=== PATIENT | female | born 1930 | race Caucasian/White ===

== ENCOUNTER 2016-10-16 19:30 | Observation (INO) | payer MEDICARE ==
[~2016-10-16] VITALS: Ht 167.6 cm; Wt 81.6 kg
--- NOTE | ~2016-10-16 | HEMODYNAMI ---
PATIENT:SIMA PHILLIP MEDICAL RECORD: [id number] : 32 [id number] ADMISSION DATE: 10/17/16 Generatedon:10/17/201610:28 Patient name: SIMA PHILLIP Patient #: [id number] : 1930 Date of study: 10/17/2016 Page: Of Hemodynamic Procedure Report Patient Data Patient Demographics Procedure consent was obtained First Name: SIMA Gender: Female Last Name: MARJAN : 1930 Middle Initial: BLAS Age: 86 year(s) Patient #: [id number] Race: SSN: [id number] Additional ID: [id number] Contact details Address: [address] [place] [address] C/O [place]: [place] [facility] [place]: [address] Past Medical History Allergies: No known allergies Admission Admission Data Admission Date: 10/17/2016 Admission Time: 0:06 Room #: D.2116 Weight (lbs.): 180.78 Weight (kg.): 82 Lab Results Lab Result Date: 10/17/2016 Lab Result Time: 0:00 Biochemistry Name Units Result Min Max BUN mg/dl 21 --(----)-* 7 18 Creatinine mg/dl 0.9 --(-*--)-- 0.6 1.3 CBC Name Units Result Min Max Hemoglobin g/dl 13.4 -*(----)-- 13.5 17.5 Procedure Procedure Types Cath Procedure Diagnostic Procedure LHC LHC w/Coronaries PCI Procedure Coronary Stent Initial Miscellaneous Procedures Moderate Sedation up to 15 minutes Procedure Description Procedure Date Procedure Date: 10/17/2016 Procedure Start Time: 10:14 Procedure End Time: 10:25 Procedure Staff Name Function Esequiel Mon MD Performing Physician Ana María Bejarano RT Scrub Tanya Moise RN Nurse Benjamin Bonilla RT Twist Maker Tomy Meza RT Monitor Procedure Data Cath Procedure Fluoroscopy Diagnostic fluoroscopy Total fluoroscopy Time: 1.6 time: 1.6 min min Diagnostic fluoroscopy Total fluoroscopy dose: dose: 108.4 mGy 108.4 mGy Contrast Material Contrast Material Type Amount (ml) Isovue 300 77 Entry Location Entry Primary Successful Side Size Upsize Upsize Entry Closure Succes sful Closure Location (Fr) 1 (Fr) 2 (Fr) Remarks Device Remarks Femoral Right 5 Fr 6 Fr Vascade artery Short Closure System Diagnostic catheters Device Type Used For End Catheter Placement Cordis 5Fr Pigtail LV Angiography Catheter (MP) Cordis 5Fr JL 4.0 Left Coronary Catheter (MP) Angiography Cordis 5Fr 3DRC Catheter Right Coronary (MP) Angiography Procedure Complications No complications Procedure Medications Medication Administration Route Dosage Oxygen NC 2 l/min Heparin Flush Bag added to field 2 bags (1000units/500ml NS) Lidocaine 2% added to field 20 Versed I.V. 1 mg Fentanyl I.V. 50 mcg Versed I.V. 1 mg Fentanyl I.V. 50 mcg Heparin Bolus I.V. 4000 units Hemodynamics Rest HGB: 13.4 (g/dl) Heart Rate: 62 (bpm) Snapshots Pre Cath Intra NCS Post Cath Vital Signs Time Heart Resp SPO2 NIBP (mmHg) Rhythm Pain Sedation Rate (ipm) (%) Status Level (bpm) 9:52:14 63 14 98 147/75(125) NSR 0 (11) 10(A) , No pain 9:56:50 68 13 94 142/73(91) NSR 0 (11) 10(A) , No pain 10:01:19 66 16 95 142/68(117) NSR 0 (11) 10(A) , No pain 10:05:51 66 16 95 139/68(116) NSR 0 (11) 10(A) , No pain 10:10:24 70 18 95 139/61(116) NSR 0 (11) 10(A) , No pain 10:14:50 70 16 96 138/69(111) NSR 0 (11) 10(A) , No pain 10:19:22 69 16 100 140/64(117) NSR 0 (11) 9(A) , No pain 10:23:51 72 20 100 130/63(110) NSR 0 (11) 9(A) , No pain Medications Time Medication Route Dose Verified Delivered Reason Notes Effectiveness by by 9:53:04 Oxygen NC 2 Esequiel Farrellca Per physician l/min Elieser Moise RN 9:53:16 Heparin Flush added 2 Esequiel Iraheta used for Bag to bags Elieser Mon MD procedure (1000units/500ml field NS) 9:53:22 Lidocaine 2% added 20ml Esequiel Esequiel used for to vial Elieser Mon MD procedure field 10:12:42 Versed I.V. 1 mg Esequiel Tanya for sedation Elieser Moise RN 10:12:48 Fentanyl I.V. 50 Esequiel Tanya for sedation mcg Elieser Moise RN 10:15:49 Versed I.V. 1 mg Esequiel Tanya for sedation Elieser Moise RN 10:15:53 Fentanyl I.V. 50 Esequiel Tanya for sedation mcg Elieser Moise RN 10:20:00 Heparin Bolus I.V. 4000 Esequiel Velardeecca for dose units Elieser Moise RN anticoagulation verified with dr mon Procedure Log Time Note 9:42:52 Diagnostic Cath status Elective 9:43:28 Benjamin Bonilla RT(R) sent for patient. Start room use. 9:43:29 Time tracking: Regular hours 9:43:39 Plan of Care:Hemodynamics will remain stable., Cardiac rhythm will remain stable., Comfort level will be maintained., Respiratory function will remain adequate., Patient/ family verbilizes understanding of procedure., Procedure tolerated without complication., Recovers from procedure without complications.. 9:43:46 Patient received from Med II to CCL 2 Alert and oriented. Tansferred to table in Supine position. 9:43:48 Warm blankets applied, and librado hugger turned on for patient comfort. 9:43:50 Correct patient and procedure confirmed by team. 9:43:53 Signed procedure consent form obtained from patient. 9:50:38 Vital chart was started 9:53:04 Oxygen 2 l/min NC was given by Tanya Moise RN; Per physician; 9:53:16 Heparin Flush Bag (1000units/500ml NS) 2 bags added to field was given by Esequiel Mon MD; used for procedure; 9:53:22 Lidocaine 2% 20ml vial added to field was given by Esequiel Mon MD; used for procedure; 9:55:46 ECG and BP/O2 sat monitors applied to patient. 9:55:47 Baseline sample Acquired. 9:55:49 Rhythm: sinus rhythm 9:55:50 Full Disclosure recording started 9:56:11 H&P Date Dictated: 10/17/2016 Within 30 days and on chart.. 9:56:13 Pre-procedure instructions explained to patient. 9:56:13 Pre-op teaching completed and patient verbalized understanding. 9:56:17 Family in patients room. 9:56:19 Patient NPO since Midnight. 9:56:30 Patient allergic to No known allergies 9:56:33 Is the patient allergic to Iodine/contrast media? No. 9:56:38 Was the patient premedicated? No 9:56:40 Is patient on blood thinner?Yes 9:56:43 ACC The patient was administered the following blood thiners within the last 24 hours: ACCPlavix 9:56:46 Patient diabetic? No. 9:56:48 ----Pre-sedation anethsthesia assessment.---- 9:56:50 Previous problem with sedation/anesthesia? No ? 9:56:53 Snore? Yes 9:56:54 Sleep apnea? No 9:56:56 Deviated septum? No 9:56:58 Opens mouth fully? Yes 9:57:00 Sticks out tongue? No 9:57:02 Airway obstruction? No ? 9:57:04 Dentures? No ? 9:57:06 Pre procedure: right dorsailis pedis pulse 1+ Palpable, but thready & weak; easily obliterated 9:57:09 Patient pain scale 0/10 ?. 9:57:17 IV patent on arrival in right antecubital with 0.9% NaCl at 10ml/hr. 9:57:53 Lab Result : BUN 21 mg/dl 9:57:53 Lab Result : Creatinine 0.9 mg/dl 9:57:53 Lab Result : Hemoglobin 13.4 g/dl 9:57:56 Lab results completed and on chart. 9:57:59 Right groin area was prepped with chlora-prep and draped in sterile fashion 9:58:01 Alarms reviewed by R. N. 9:58:01 Sharps counted by scrub and verified by R.N. 10:01:49 Physician paged 10:01:56 Patient Weight : 82 lbs 10:03:54 Zero performed for pressure channel P1 10:12:16 --------ALL STOP TIME OUT------ 10:12:16 Final Timeout: patient, procedure, and site verified with staff and physician. All members of the team are in agreement. 10:12:19 Right groin site verified by team. 10:12:23 Physical assessment completed. ASA score P 2 - A patient with mild systemic disease as per Esequiel Mon MD. 10:12:28 Sedation plan: IV Moderate Sedation Versed, Fentanyl 10:12:42 Versed 1 mg I.V. was given by Tanya Moise RN; for sedation; 10:12:47 Use device set Femoral Dx 10:12:48 Fentanyl 50 mcg I.V. was given by Tanya Moise RN; for sedation; 10:12:48 Acist Syringe opened to sterile field. 10:12:48 Bag Decanter opened to sterile field. 10:12:49 Cardinal Cath Pack opened to sterile field. 10:12:49 Terumo 5Fr [place] Sheath opened to sterile field. 10:12:50 St Mushtaq 260cm J .035 wire opened to sterile field. 10:12:51 Acist Hand Control opened to sterile field. 10:12:52 Acist Manifold opened to sterile field. 10:12:52 Cordis Infinity 5Fr Multipack catheter opened to sterile field. 10:12:53 Tegaderm 4 x 4 opened to sterile field. 10:13:59 Procedure started. 10:14:08 Local anesthetic to right femoral artery with Lidocaine 2% by Esequiel Mon MD.INITIAL ACCESS ONLY 10:14:15 A 5 Fr sheath was inserted into the Right Femoral artery 10:15:09 A Cordis 5Fr Pigtail Catheter (MP) was advanced over the wire and used for LV Angiography. 10:15:12 LV angiography performed. 10:15:15 LV gram done using SOLIMAN 10:15:20 Injector settings: Ml/sec: 5, Volume: 15, 10:15:49 Versed 1 mg I.V. was given by Tanya Moise RN; for sedation; 10:15:53 Fentanyl 50 mcg I.V. was given by Tanya [place] RN; for sedation; 10:16:21 EF : 60 % 10:16:22 Catheter removed. 10:16:27 A Cordis 5Fr JL 4.0 Catheter (MP) was advanced over the wire and used for Left Coronary Angiography. 10:17:09 LCA angiography performed. 10:17:39 Catheter removed. 10:17:56 Terumo 6Fr [place] Sheath opened to sterile field. 10:17:57 Paulson Whisper J 300cm 0.014 guide wire opened to sterile field. 10:17:57 Flixlab BasixCompak Inflation Kit opened to sterile field. 10:18:11 A Cordis 5Fr 3DRC Catheter (MP) was advanced over the wire and used for Right Coronary Angiography. 10:18:14 RCA angiography performed. 10:18:42 Catheter removed. 10:18:55 Cordis 6FR XBLAD 3.5 guide catheter opened to sterile field. 10:19:47 Sheath upsized to a 6 Fr Short. 10:19:52 ACC PCI Site: mLAD has 75% stenosis. 10:19:55 ACC Pre-intervention TERESA Flow is 2. 10:20:00 Heparin Bolus 4000 units I.V. was given by Tanya Moise RN; for anticoagulation; dose verified with dr mon 10:20:02 6 Fr XBLAD 3.5 guide catheter was inserted over the wire 10:20:06 Zenovia Digital ExchangeISPER wire advanced. 10:21:38 Inflation Number: 1 A Medtronic Resolute 3.0 X 9 stent was prepped and advanced across the Mid LAD. The stent was deployed at 19 CARIE for 0:10 (min:sec). 10:22:04 ACC Post-intervention TERESA Flow is 3. 10:22:05 Stent catheter was removed intact over wire. 10:22:06 Wire removed. 10:22:06 Guide catheter removed. 10:22:17 Sheath removed intact; hemostasis achieved with Vascade Closure System to the Right Femoral artery. 10:22:24 Vascade 6/7 Fr Closure Device opened to sterile field. 10:22:29 Procedure ended.(Physican Out) 10:23:13 Fluoroscopy time 01.60 minutes. 10:23:23 Fluoroscopy dose: 108.4 mGy 10:23:23 Flurop Dose total: 108.4 10:23:45 Contrast amount:Isovue 300 77ml. 10:23:46 Sharps counted by scrub and verified by R.N. 10:23:47 Insertion/operative site no bleeding no hematoma. 10:23:49 Post-op/insertion site Right Femoral artery dressed using a 4 x 4 and Tegaderm. 10:23:52 Post right femoral artery:stable 10:23:54 Post Procedure Pulses reassessed and unchanged 10:23:57 Post procedure rhythm: sinus rhythm 10:23:58 Post procedure instruction explained to patient.Patient verbalizes understanding. 10:24:15 Procedure type changed to Cath procedure, Diagnostic procedure, LHC, LHC w/Coronaries, PCI procedure, Coronary Stent Initial, Miscellaneous Procedures, Moderate Sedation up to 15 minutes 10:24:38 Procedure and supply charges have been captured, reviewed, submitted and are correct. 10:25:00 Procedure Complication : No complications 10:25:02 Vital chart was stopped 10:25:03 See physician's report for complete and final results. 10:25:04 Report given to PCU. 10:25:08 Patient transfered to PCU with Bed. 10:25:10 Procedure ended. 10:25:10 Full Disclosure recording stopped 10:25:14 End room use (Document Last) Intervention Summary Intervention Notes Time ActionType Lesion and Equipment Action# Pressure Duration Attributes Used 10:21:38 Place stent Mid LAD Medtronic 1 19 00:10 Resolute 3.0 X 9 stent Device Usage Item Name Manufacture Quantity Catalog Hospital Part Current Minima l Lot# / Number Charge Number Stock Stock Serial# Code Acist Acist 1 51395 139164 923373 856252 20 Syringe Medical Systems Inc Bag Microtek 1 2002S 553445 71483 691043 5 Decanter Medical Inc. Cardinal Cardinal 1 [id number] 818518 71841 825523 5 Cath Pack Geolab-IT Terumo 5Fr Terumo 1 [id number] 627187 568871 [address] Mushtaq 1 979277 320625 515402 139386 30 260cm J .035 wire Acist Hand Acist 1 63356 297184 531094 556245 5 Control Medical Systems Inc Acist Acist 1 91529 742920 883752 236835 5 Manifold Medical Systems Inc Cordis Cardinal 1 [id number] 280001 88244 163394 30 Infinity Health 5Fr Multipack catheter Tegaderm 4 3M 1 1626W 915737 003824 477876 5 x 4 Cordis 5Fr Cardinal 1 662696 5 Pigtail Health Catheter (MP) Cordis 5Fr Cardinal 1 361014 5 JL 4.0 Health Catheter (MP) Terumo 6Fr Terumo 1 [id number] 077648 525063 232206 40 Mar[place]opa Sheath Paulson Paulson 1 [id number] 447396 232076 435228 5 Whisper J Vascular 300cm 0.014 guide wire Merit Merit 1 GG7865 428362 641514 939957 15 FP Complete Medical Inflation Kit Cordis 5Fr Cardinal 1 853735 5 3DRC Health Catheter (MP) Cordis 6FR Cardinal 1 [id number] 067609 651979 861638 10 XBLAD 3.5 Health guide catheter Medtronic Medtronic 1 [id number] 795500 272410 0 [id number] Resolute 3.0 X 9 stent Vascade 02/13 Cardiva 1 [id number] 479821 171678 788786 5 Fr Closure Medical, Device Inc. Signature Audit Westley Stage Time Signature Unsigned Intra-Procedure 10/17/2016 Tomy Meza 10:28:26 AM RT(R) Signatures Monitor : Tomy Meza RT Signature : Date : Time : [id number] [place] [address]
[2016-10-16 20:35] LABS: BASOPHILS 0.2 % (0.0-2.0); EOSINOPHILS 0.8 % (0-7); HEMATOCRIT 42.7 % (36.0-48.0); IMMATURE GRANULOCYTES 0.2 % (0-5); LYMPHOCYTES 24.3 % (15-50); MCH 30.3 pg (26.0-34.0); MCHC 32.8 g/dL (31.0-37.0); MCV 92.4 fL (80.0-100.0); MEAN PLATELET VOLUME 10.6 fL (7.4-10.4); MONOCYTES 10.2 % (2-11); NEUTROPHILS 64.3 % (40-80); PLATELET COUNT 176 10x3/uL (130-400); RBC 4.62 10x6/uL (4.00-5.40); RDW 14.2 % (11.5-14.5); WBC 9.6 10x3/uL (4.8-10.8)
[2016-10-16 20:55] LABS: ALBUMIN 3.4 g/dL (3.4-5.0); ALKALINE PHOSPHATASE 127 U/L (46-116); ALT (SGPT) 23 U/L (10-68); BILIRUBIN - TOTAL 0.32 mg/dL (0.2-1.3); CALC OSMOLALITY 289 mosm/kg (275-300); CALCIUM 8.9 mg/dL (8.5-10.1); CARBON DIOXIDE 30.4 mmol/L (21.0-32.0); CHLORIDE - SERUM 105 mmol/L (98-107); GLUCOSE 100 mg/dL (74-106); POTASSIUM - SERUM 3.9 mmol/L (3.5-5.1); PROTEIN - SERUM 6.7 g/dL (6.4-8.2); SODIUM 144 mmol/L (136-145); UREA NITROGEN 20 mg/dL (7-18); eGFR NON AFRICAN AMERICAN 56 mL/min (90-120)
[2016-10-16 21:06] LABS: CHOL - HDL RATIO 4.3 ratio (2.3-4.1); CHOLESTEROL, TOTAL 201 mg/dL (0-200); CKMB 0.6 U/L (0.0-3.6); CREATINE KINASE 47 UL (21-215); HDL CHOLESTEROL 47 mg/dL (32-96); LDL CHOLESTEROL 114 mg/dL (0-100); LDL-HDL RATIO 2.4 ratio (1.5-3.5); PRO BNP 348 pg/mL (0-450); TRIGLYCERIDE 203 mg/dL (30-200)
[2016-10-16 21:10] LABS: TROPONIN-I < 0.017 ng/mL (0.000-0.060)
[2016-10-17] MEDS ORDERED: FUROSEMIDE20 MG PO (01:17)
[2016-10-17] MEDS ORDERED: POTASSIUM CL ER 10 M PO (01:18)
[2016-10-17] MEDS ORDERED: LIPITOR10 MG PO (01:19)
[2016-10-17] MEDS ORDERED: PLAVIX75 MG PO (01:20)
[2016-10-17] MEDS ORDERED: TOPROL XL50 MG PO (01:21)
[2016-10-17] MEDS ORDERED: BAYER CHEWABLE81 MG PO (01:22)
[2016-10-17] MEDS ORDERED: CO Q-10200 MG PO (01:22)
[2016-10-17] MEDS ORDERED: NITROSTAT0.4 MG SL (01:22)
[2016-10-17] MEDS ORDERED: VITAMIN D31000 UNIT PO (01:23)
[2016-10-17 01:33] VITALS: BP 152/65; BMI 29.1
[2016-10-17 04:00] VITALS: BP 145/70
--- NOTE | 2016-10-17 05:38 | NUR ---
PT ARRIVED VIA WHEELCHAIR @ 01:04 THIS AM, AWAKE, ALERT, ORIENTED, DENIES ACTIVE CHEST PAIN. PT STATED SHE USES [facility], AND HAS RECENTLY MOVED FROM [place] TO HERE AND HER MEDS WERE SENT TO THE [place] ADDRESS, THEREFORE SHE HAS BEEN OUT OF HER DAILY MEDICATIONS. PT DENIES CHEST PAIN WITH EXERTION, HOWEVER SHE DOES DESCRIBE PAIN WITH INSPIRATION. DENIES ANY NEEDS. CONTINUE TO MONITOR CLOSELY.
[2016-10-17 07:50] VITALS: BP 159/68
[2016-10-17 08:42] LABS: BASOPHILS 0.3 % (0.0-2.0); EOSINOPHILS 1.1 % (0-7); HEMATOCRIT 41.3 % (36.0-48.0); HEMOGLOBIN 13.4 g/dL (12-16); IMMATURE GRANULOCYTES 0.1 % (0-5); LYMPHOCYTES 35.6 % (15-50); MCHC 32.4 g/dL (31.0-37.0); MCV 92.4 fL (80.0-100.0); MEAN PLATELET VOLUME 11.6 fL (7.4-10.4); MONOCYTES 10.6 % (2-11); NEUTROPHILS 52.3 % (40-80); PLATELET COUNT 180 10x3/uL (130-400); RBC 4.47 10x6/uL (4.00-5.40); RDW 14.3 % (11.5-14.5); WBC 7.9 10x3/uL (4.8-10.8)
[2016-10-17 08:47] LABS: ANION GAP 10.4 mmol/L (8-16); CALCIUM 8.8 mg/dL (8.5-10.1); CARBON DIOXIDE 28.5 mmol/L (21.0-32.0); CREATININE - SERUM 0.9 mg/dL (0.6-1.3); POTASSIUM - SERUM 3.9 mmol/L (3.5-5.1)
--- NOTE | 2016-10-17 09:27 | NUR ---
TELEMETRY SR. CONSENTS FOR C SIGNED. PRE-OPS GIVEN. WILL CONT. PLAN OF CARE.
--- NOTE | 2016-10-17 09:33 | NUR ---
LEAVING FOR LAT[employer] STUDIES DIRECTOR BY BED.
[2016-10-17 10:39] VITALS: Ht 167.6 cm; Wt 81.6 kg
--- NOTE | 2016-10-17 10:48 | NUR ---
BACK FROM ALUM MIXER. VS WNL/ RIGHT GROIN STABLE WITHOUT BLEEDING OR HEMATOMA NOTED. WILL MONITOR.
[2016-10-17 11:59] VITALS: BP 131/61
--- NOTE | 2016-10-17 14:30 | NUR ---
BED REST UP. GROIN STABLE.
--- NOTE | 2016-10-17 14:52 | NUR ---
IV AND TELEMETRY DCD. DC PLANS GIVEN. UNDERSTANDING VOICED. ESCORTED TO CAR BY W/C.
--- NOTE | 2016-10-18 13:59 | OP ---
PATIENT NAME: SIMA PHILLIP MEDICAL RECORD: [id number] :32 LOCATION:D.M2 D.2116 ADMISSION DATE:10/17/16 SURGEON: JIGAR PRIETO MD DATE OF OPERATION: 10/17/2016 PROCEDURES: 1. PTCA stent LAD. 2. Left heart catheterization. 3. Selective coronary angiography. 4. Left ventriculogram. INDICATION: Angina and coronary artery disease. PROCEDURE IN DETAIL: After informed consent was obtained and after detailed explanation of risks, benefits as well as alternative therapies, the patient elected to proceed with angiogram and angioplasty. The right femoral area was prepped and draped in normal sterile fashion. The right femoral artery was cannulated via modified Seldinger technique with placement of 6-Maltese sheath. All catheters exchanged through this sheath. FINDINGS: Left ventriculogram was performed in standard 30-degree SOLIMAN view, reveals good cardiac wall motion throughout all segments. Overall ejection fraction is 60%. SELECTIVE CORONARY ANGIOGRAPHY: 1. Left main showed no significant angiographic disease. 2. Left anterior descending has previously placed stents that are 75% in-stent restenosis in the midvessel, otherwise only mild irregularities. 3. Left circumflex has mild irregularities, no flow-limiting stenosis. 4. Right coronary has mild irregularities, but no flow-limiting stenosis. Previously placed stents here are with no significant restenosis. PTCA STENT OF THE LAD: The stent used was 3.0 x 8 mm Resolute taken to 19 atmospheres. Result was 0% residual stenosis. OVERALL IMPRESSION: Successful percutaneous transluminal coronary angioplasty stent of the left anterior descending going from 75% in-stent restenosis to 0% residual. TRANSINT:[id number] Voice Confirmation ID: [id number] DOCUMENT ID: [id number] JIGAR PRIETO MD at 1359 CC: [id number] DICTATION DATE: 10/17/16 1028 DETONATOR ASSEMBLER: 10/17/16 1108 DIS IN 10/17/16 [place] [id number]
--- NOTE | 2016-10-18 13:59 | DS ---
PATIENT:SIMA RAY :[birth year] MEDICAL RECORD: [id number] DISCHARGE SUMMARY ADMISSION DATE: 10/17/16 DISCHARGE DATE: 10/17/16 DISCHARGE DIAGNOSES: 1. Unstable angina. 2. Percutaneous transluminal coronary angioplasty stent of the left anterior descending this admission. 3. Hypertension. 4. Hyperlipidemia. HISTORY: Mrs. Ray presents with unstable anginal symptomatology, found to have restenosis in the mid LAD, underwent successful PTCA stent of this vessel, had an uneventful postop course. She was discharged home with no change in her medications as she is already on aspirin and Plavix. Follow up with [facility] in 1 month. TRANSINT:[id number] Voice Confirmation ID: [id number] DOCUMENT ID: [id number] JIGAR PRIETO MD at 1359 CC: [id number] DICTATION DATE: 10/17/16 1027 MOLDED FRAMES ASSEMBLER: 10/17/16 1244 DIS IN 10/17/[address] [address]
--- NOTE | 2016-10-18 13:59 | HP ---
PATIENT: SIMA RAY MEDICAL RECORD: [id number] ACCOUNT: [id number] LOCATION:[address] : [birth year] ADMISSION DATE: 10/17/16 HISTORY AND PHYSICAL EXAMINATION ADMITTING DIAGNOSES: 1. Unstable angina. 2. Coronary artery disease. 3. Previous percutaneous transluminal coronary angioplasty stent. 4. Abnormal ECG. 5. Hypertension. 6. Hyperlipidemia. HISTORY OF PRESENT ILLNESS: Mrs. Ray has previous cardiac stents, 4 in 2010, one in December of last year. These were all done near [place], [place]. She is relocated to the [facility]. She has had 2 days of chest pain. She has T-wave inversions anteriorly. She has a normal troponin. She has continued to have chest pain. PHYSICAL EXAMINATION: GENERAL APPEARANCE: Well-nourished, well-developed, appears stated age. Level of distress, comfortable. PSYCHIATRIC: Mental status, alert, normal affect. Orientation, oriented to time, place and person. EYES: Lids and conjunctiva, noninjected. No discharge, no pallor. ENT: Lips, teeth, gums, normal dentition. Oropharynx, no cyanosis, no pallor. NECK: Carotid arteries, bilateral normal upstroke, no bruits, no thrills. JUGULAR VEINS: No jugular venous pressure or distention. CERVICAL LYMPH NODES: Nontender, nonenlarged. THYROID: Not enlarged. Nontender. No nodules. LUNGS: Respiratory effort, unlabored. CHEST: Normal curvature. No thoracic deformity. No chest wall tenderness. Percussion, resonant. Auscultation, clear. No wheezes, no rales, no rhonchi. CARDIOVASCULAR: Precordial exam, nondisplaced. No heaves or pericardial thrills. Rate and rhythm, regular. Heart sounds, normal S1, normal S2. No S3, no gallop, no rub. Systolic murmur, not heard. Diastolic murmur, not heard. EXTREMITIES: No cyanosis, no edema. Peripheral pulses, full and equal in all extremities, except as noted. No bruits appreciated. ABDOMEN: Soft, nondistended. Normal aorta. No bruit. Nontender. No masses. Liver, nontender, no hepatomegaly. Spleen, nontender, no splenomegaly. MUSCULOSKELETAL: No joint tenderness. No joint swelling. No erythema. NEUROLOGICAL: Normal gait, normal strength, normal tone. SKIN: Warm and dry. REVIEW OF SYSTEMS: The patient reports easy bruising but reports no swollen glands. The patient reports no fever, no night sweats, no significant weight gain, no significant weight loss. No significant exercise tolerance. The patient reports no dry eyes, no irritation, no vision change. Patient reports no difficulty hearing and no ear pain. Patient reports no frequent nose bleeds or nose and sinus problems. Patient reports on arm pain on exertion. No shortness of breath while lying down. No history of heart murmur. Patient reports no cough, no wheezing or coughing up blood. Patient reports no abdominal pain, no vomiting. Normal appetite. No diarrhea and not vomiting blood. No nausea and no constipation. Patient reports no incontinence. No difficulty urinating. No hematuria. No increased frequency. Patient reports HISTORY AND PHYSICAL [id number] RAY,SIMA BLAS no muscle aches. No weakness, no arthralgias, no back pain. No swelling of the extremities. Patient reports no abnormal mole, no jaundice, no rashes. Reports no loss of consciousness. No weakness and no numbness. No seizures, dizziness, or headaches. The patient reports no depression, no sleep disturbance, feeling safe in a relationship and no alcohol abuse. Patient reports on fatigue. Reports no runny nose or sinus pressure. No itching, no hives, and no frequent sneezing. OVERALL IMPRESSION: Unstable angina in a patient with a past history of coronary stenting, most likely she has hemodynamically significant coronary artery disease. We will proceed with coronary angiography. Further care depends upon findings of the angiography. TRANSINT:[id number] Voice Confirmation ID: [id number] DOCUMENT ID: [id number] JIGAR PRIETO MD at 1359 CC: [id number] DICTATION DATE: 10/17/16832 DIRECTOR CUSTOMER: 10/17/16 1010 DIS IN 10/17/16 [place] [address]
== END 2016-10-17 14:53 | disposition home or self-care (01) ==
LOC: D.ER 19:30 → OBSVTIME 10-17 00:06 → D.M2 10-17 00:06
PROVIDERS: Emergency Medicine; ADMIT Internal Medicine Interventional Cardiology
DX: I25.110 Atherosclerotic heart disease of native coronary artery with unstable angina pectoris (principal); Z95.5 Presence of coronary angioplasty implant and graft; R94.31 Abnormal electrocardiogram [ECG] [EKG]; I10 Essential (primary) hypertension; E78.5 Hyperlipidemia, unspecified

== ENCOUNTER 2019-04-12 11:18 | Outpatient (CLI) | payer MEDICARE ==
[~2019-04-12] VITALS: Ht 167.6 cm; Wt 87.5 kg
--- NOTE | ~2019-04-12 | HEMODYNAMI ---
PATIENT:SIMA PHILLIP MEDICAL RECORD: [id number] : 32 [facility] ADMISSION DATE: 04/12/19 Generatedon:04/13/201916:34 Patient name: SIMA PHILLIP Patient #: [id number] : 1930 Date of study: 04/13/2019 Page: Of Hemodynamic Procedure Report Patient Data Patient Demographics Procedure consent was obtained First Name: SIMA Gender: Female Last Name: MARJAN : 1930 Middle Initial: BLAS Age: 88 year(s) Patient #: [id number] Race: SSN: [id number] Additional ID: [id number] Contact details Address: [address] [place] [address] C/O State: [place] City: [facility] Zip code: [address] Past Medical History Allergies: No known allergies Admission Admission Data Admission Date: 04/12/2019 Admission Time: 11:18 Admit Source: Emergency Insurance Payor: Private department health insurance Room #: D.2117 Height (in.): 66 BSA: 1.97 (m2) Height (cm.): 167.64 BMI: 31.31 (kg/m2) Weight (lbs.): 194.01 Weight (kg.): 88 Lab Results Lab Result Date: 04/13/2019 Lab Result Time: 0:00 Biochemistry Name Units Result Min Max BUN mg/dl 22 --(----)-* 7 18 Creatinine mg/dl 0.9 --(-*--)-- 0.6 1.3 eGFR ml/min 63 *-(----)-- 90 120 NONAFRICAN CBC Name Units Result Min Max Hemoglobin g/dl 14.5 --(*---)-- 13.5 17.5 Platelets 10^3/l 176 --(*---)-- 130 400 Procedure Procedure Types Cath Procedure Diagnostic Procedure [facility] w/Coronaries Procedure Description Procedure Date Procedure Date: 04/13/2019 Procedure Start Time: 16:21 Procedure End Time: 16:30 Procedure Staff Name Function Esequiel Mon MD Performing Physician Chrissy Abreu RT Monitor Tameka Waddell RN Nurse Benjamin Bonilla RT Scrub Delmis Little RT Scrub Procedure Data Cath Procedure Fluoroscopy Diagnostic fluoroscopy Total fluoroscopy Time: 0.8 time: 0.8 min min Diagnostic fluoroscopy Total fluoroscopy dose: 265 dose: 265 mGy mGy Contrast Material Contrast Material Type Amount (ml) Isovue 300 54 Entry Location Entry Primary Successful Side Size Upsize Upsize Entry Closure Succes sful Closure Location (Fr) 1 (Fr) 2 (Fr) Remarks Device Remarks Femoral Right 5 Fr Exoseal artery Estimated blood loss: 5 ml Diagnostic catheters Device Type Used For End Catheter Placement MULTIPACK Pigtail 5 Fr LV Angiography catheter MULTIPACK JL 4.0 5Fr Left Coronary catheter Angiography MULTIPACK 3DRC 5Fr Right Coronary catheter Angiography Procedure Complications No complications Procedure Medications Medication Administration Route Dosage Oxygen etCO2 Nasal cannula 2 l/min Lidocaine 2% added to field 20 Heparin Flush Bag added to field 2 bags (1000units/500ml NS) 0.9% NaCl I.V. 100 ml/hr Versed I.V. 1 mg Fentanyl I.V. 50 mcg Hemodynamics Rest BSA: 1.97 (m2) HGB: 14.5 (g/dl) O2 Consumption: Estimated: 168.43 (ml/min) O2 Co nsumption indexed: Estimated:85.5 (ml/min/m) Heart Rate: 62 (bpm) Snapshots Pre Cath Intra NCS Post Cath Vital Signs Time Heart Resp SPO2 etCO2 NIBP (mmHg) Rhythm Pain Sedation Rate (ipm) (%) (mmHg) Status Level (bpm) 16:09:46 66 20 96 0 No Cuff NSR 0 (11) 10(A) , No pain 16:17:02 68 19 94 22.4 136/65(106) NSR 0 (11) 10(A) , No pain Medications Time Medication Route Dose Verified Delivered Reason Notes Eff ectiveness by by 16:15:24 Oxygen etCO2 2 Esequiel English used for Nasal l/min Elieser Waddell RN procedure cannula 16:15:31 Lidocaine 2% added 20ml Esequiel Iraheta for local to vial Elieser Mno MD anesthetic field 16:15:58 Heparin Flush added 2 Esequiel Iraheta used for Bag to bags Elieser Mon MD procedure (1000units/500ml field NS) 16:16:06 0.9% NaCl I.V. 100 Esequiel English Per ml/hr Elieser Waddell RN physician 16:16:17 Versed I.V. 1 mg Esequiel Desiryoshi for Elieser Waddell RN sedation 16:16:23 Fentanyl I.V. 50 Esequiel English for mcg Elieser Waddell RN sedation Procedure Log Time Note 15:45:58 Admit Source: Emergency department 15:46:23 ACC Patient presents with Unstable Angina CCS Anginal Class 4--Inability to carry out any physical activity w/o angina. Angina may occur at rest. 15:47:17 ACCPatient has been prescribed/administered the following anti-anginal medication within the last 2 weeks: Beta Aliya, Long-Acting Nitrates 15:47:52 Procedure Status Urgent Heart Cath (IP). 15:47:55 Chrissy Abreu RT(R) sent for patient. Start room use. 15:47:56 Time tracking: Regular hours (M-F 7:00 - 5:00) 15:48:00 Plan of Care:Hemodynamics will remain stable., Cardiac rhythm will remain stable., Comfort level will be maintained., Respiratory function will remain adequate., Patient/ family verbilizes understanding of procedure., Procedure tolerated without complication., Recovers from procedure without complications.. 15:49:49 Patient Height : 66 inches 15:49:54 Patient Weight : 194.01 lbs 15:50:21 Insurance Payor : Private health insurance 15:54:47 Lab Result : eGFR NONAFRICAN 63 ml/min 15:54:47 Lab Result : Hemoglobin 14.5 g/dl 15:54:47 Lab Result : BUN 22 mg/dl 15:54:47 Lab Result : Creatinine 0.9 mg/dl 15:54:47 Lab Result : Platelets 176 10^3/l 15:54:55 2) 60-89 Mildly reduced kidney function, and other findings (as for stage 1) point to kidney disease. 15:55:00 Maximum allowable contrast dose (3.7 X eGFR X 0.75)175 ml. 16:03:35 Patient received from PCU to CCL 2 Alert and oriented. Tansferred to table in Supine position. 16:03:36 Warm blankets applied, and librado hugger turned on for patient comfort. 16:03:38 Signed procedure consent form obtained from patient. 16:03:39 Correct patient and procedure confirmed by team. 16:03:39 ECG and BP/O2 sat monitors applied to patient. 16:06:26 H&P Date Dictated: 04/12/2019 Within 30 days and on chart.. 16:06:28 Pre-procedure instructions explained to patient. 16:06:28 Pre-op teaching completed and patient verbalized understanding. 16:06:31 Family in patients room. 16:07:04 Patient NPO since Midnight. 16:07:12 Is the patient allergic to Iodine/contrast media? No. 16:07:36 Is patient on blood thinner?Yes 16:07:41 ACC The patient was administered the following blood thiners within the last 24 hours: ACCAspirin, ACCPlavix 16:07:46 Patient diabetic? No. 16:07:48 Previous problem with sedation/anesthesia? No ? 16:07:50 Snore? Yes 16:07:51 Sleep apnea? No 16:07:52 Deviated septum? No 16:07:53 Opens mouth fully? Yes 16:07:54 Sticks out tongue? Yes 16:07:56 Airway obstruction? No ? 16:07:57 Dentures? No ? 16:08:00 Pre procedure: right dorsailis pedis pulse 1+ Palpable, but thready & weak; easily obliterated 16:08:06 Patient pain scale 0/10 ?. 16:08:14 IV patent on arrival in left antecubital with 0.9% NaCl at KVO. 16:08:15 Lab results completed and on chart. 16:08:19 Right groin area was prepped with chlora-prep and draped in sterile fashion 16:08:20 Alarms reviewed by R. N. 16:08:20 Sharps counted by scrub and verified by R.N. 16:08:38 Use device set Femoral Dx 16:08:40 Tegaderm 4 x 4 (1626W) opened to sterile field. 16:08:42 ACIST Syringe (14100) opened to sterile field. 16:08:42 Bag Decanter (2002S) opened to sterile field. 16:08:43 Medline Cath Pack ([id number]) opened to sterile field. 16:08:44 ACIST Hand Control (57618) opened to sterile field. 16:08:45 ACIST Manifold (68098) opened to sterile field. 16:08:47 DIAGNOSTIC Multipack 5Fr catheter set (IM9752) opened to sterile field. 16:08:48 SHEATH 5FR [place] (PMC317) opened to sterile field. 16:08:48 EMERALD Guide Wire (502-937) opened to sterile field. 16:08:58 Baseline sample Acquired. 16:09:00 Rhythm: sinus rhythm 16:09:01 Full Disclosure recording started 16:12:43 Physician arrived 16:12:44 --------ALL STOP TIME OUT------ 16:12:45 Final Timeout: patient, procedure, and site verified with staff and physician. All members of the team are in agreement. 16:12:50 Right groin site verified by team. 16:12:55 Fire Safety Assessment: A--An alcohol-based skin anteseptic being used preoperatively., C--Open oxygen or nitrous oxide is being used., D--An ESU, laser, or fiber-optic light is being used. 16:12:59 Physical assessment completed. ASA score P 2 - A patient with mild systemic disease as per Esequiel Mon MD. 16:15:24 Oxygen 2 l/min etCO2 Nasal cannula was administered by Tameka Waddell RN; used for procedure; 16:15:31 Lidocaine 2% 20ml vial added to field was administered by Esequiel Mon MD; for local anesthetic; 16:15:58 Heparin Flush Bag (1000units/500ml NS) 2 bags added to field was administered by Esequiel Mon MD; used for procedure; 16:16:06 0.9% NaCl 100 ml/hr I.V. was administered by Tameka Waddell RN; Per physician; 16:16:17 Versed 1 mg I.V. was administered by Tameka Waddell RN; for sedation; 16:16:23 Fentanyl 50 mcg I.V. was administered by Tameka Waddell RN; for sedation; 16:20:51 Procedure started. 16:21:06 Local anesthetic to right femoral artery with Lidocaine 2% by Esequiel Mon MD.INITIAL ACCESS ONLY 16:21:13 A 5 Fr sheath was inserted into the Right Femoral artery 16:22:32 A MULTIPACK Pigtail 5 Fr catheter was advanced over the wire and used for LV Angiography. 16:22:38 LV hemodynamics recorded. 16:22:39 LV gram done using SOLIMAN 16:22:41 Injector settings: Ml/sec: 5, Volume: 15, 16:22:52 EF : 50 % 16:22:56 Catheter removed. 16:23:00 A MULTIPACK JL 4.0 5Fr catheter was advanced over the wire and used for Left Coronary Angiography. 16:24:15 LCA angiography performed. 16:24:18 Injector settings: Ml/sec: 3, Volume: 6, 16:24:24 Catheter removed. 16:24:38 A MULTIPACK 3DRC 5Fr catheter was advanced over the wire and used for Right Coronary Angiography. 16:25:04 RCA angiography performed. 16:25:26 Injector settings: Ml/sec: 3, Volume: 6, 16:25:43 Catheter removed. 16:26:03 EXOSEAL 5Fr (EX500) opened to sterile field. 16:26:50 Sheath removed intact; hemostasis achieved with Exoseal to the Right Femoral artery. 16:26:53 Procedure ended.(Physican Out) 16:27:15 Fluoroscopy time 00.80 minutes. 16:27:19 Fluoroscopy dose: 265 mGy 16:27:19 Flurop Dose total: 265 16:27:32 Dose Area Product 77273 mGy/cm. 16:27:36 Contrast amount:Isovue 300 54ml. 16:27:40 Sharps counted by scrub and verified by R.N. 16:27:43 Insertion/operative site no bleeding no hematoma. 16:27:45 Post-op/insertion site Right Femoral artery dressed using a 4 x 4 and Tegaderm. 16:29:34 Post Procedure Pulses reassessed and unchanged 16::38 Post procedure rhythm: unchanged. 16:29:40 Estimated blood loss: 5 ml 16::43 Post procedure instruction explained to patient.Patient verbalizes understanding. 16:29:46 Patient needs reinforcement of post procedure teaching. 16:29:58 Procedure and supply charges have been captured, reviewed, submitted and are correct. 16:30:02 Procedure Complication : No complications 16:30:16 See physician's report for complete and final results. 16:30:18 Report given to Med II. 16:30:21 Patient transfered to Med II with Stretcher. 16:30:26 Procedure ended. 16:30:26 Full Disclosure recording stopped 16:30:30 End room use (Document Last) Device Usage Item Name Manufacture Quantity Catalog Hospital Part Current Minimal L ot# / Number Charge Number Stock Stock Serial# Code Tegaderm 4 3M 1 1626W [id number] [id number] 5 x 4 (1626W) ACIST Acist 1 45654 251174 209154 213830 20 Syringe Medical (10304) Systems Inc Bag Microtek 1 2001S 408910 58305 655604 5 Decanter Medical Inc. (2001S) Medline Medline 1 [id number] 468172 05261 915612 5 Cath Pack ([id number]) ACIST Hand Acist 1 83409 298223 143019 212816 5 Control Medical (26399) Systems Inc ACIST Acist 1 74138 833654 153757 762705 5 Manifold Medical (90474) Systems Inc DIAGNOSTIC Cardinal 1 KA8960 447246 58559 917667 30 Multipack Health 5Fr catheter set (RE7233) SHEATH 5FR Terumo 1 MWQ769 631640 385015 053291 5 [place] (HBL959) EMERALD Cardinal 1 801-450 710748 988615 051806 5 Guide Wire Health (502-084) MULTIPACK Cardinal 1 442410 5 Pigtail 5 Health Fr catheter MULTIPACK Cardinal 1 833877 5 JL 4.0 5Fr Health catheter MULTIPACK Cardinal 1 660310 5 3DRC 5Fr Health catheter EXOSEAL 5Fr Cardinal 1 EX500 597602 481607 141960 10 (EX500) Health Signature Audit [place] Stage Time Signature Unsigned Intra-Procedure 04/13/2019 Chrissy Abreu 4:34:28 PM RT(R) Signatures Performing Physician : Signature : Esequiel Mon MD Date : Time : Monitor : Chrissy Abreu RT Signature : Date : Time : Nurse : Buffie Waddell RN Signature : Date : Time : [address] [place] [address]
[~2019-04-12 11:18] MED LIST: BAYER CHEWABLE81 MG PO; CO Q-10200 MG PO; FUROSEMIDE20 MG PO; LIPITOR10 MG PO; NITROSTAT0.4 MG SL; PLAVIX75 MG PO; POTASSIUM CL ER 10 M PO; TOPROL XL50 MG PO; VITAMIN D31000 UNIT PO
[2019-04-12 11:51] LABS: APTT 27.6 SECONDS (22.8-39.4); INR 1.03 (0.85-1.17)
[2019-04-12 11:54] LABS: BASOPHILS 0.2 % (0-2); HEMATOCRIT 43.1 % (36.0-48.0); HEMOGLOBIN 14.5 g/dL (12-16); IMMATURE GRANULOCYTES 0.2 % (0-5); LYMPHOCYTES 24.9 % (15-50); MCH 30.1 pg (26.0-34.0); MCHC 33.6 g/dL (31.0-37.0); MCV 89.6 fL (80.0-100.0); MEAN PLATELET VOLUME 11.4 fL (7.4-10.4); MONOCYTES 9.5 % (2-11); NEUTROPHILS 64.2 % (40-80); PLATELET COUNT 176 10x3/uL (130-400); RBC 4.81 10x6/uL (4.00-5.40); RDW 14.6 % (11.5-14.5); WBC 9.8 10x3/uL (4.8-10.8)
[2019-04-12 11:57] LABS: ALBUMIN 3.5 g/dL (3.4-5.0); ALKALINE PHOSPHATASE 96 U/L (46-116); ALT (SGPT) 17 U/L (10-68); BILIRUBIN - TOTAL 0.41 mg/dL (0.2-1.3); CALC OSMOLALITY 283 mosm/kg (275-300); CALCIUM 9.1 mg/dL (8.5-10.1); CARBON DIOXIDE 29.5 mmol/L (21.0-32.0); CHLORIDE - SERUM 105 mmol/L (98-107); CREATININE - SERUM 0.9 mg/dL (0.6-1.3); GLUCOSE 99 mg/dL (74-106); POTASSIUM - SERUM 3.9 mmol/L (3.5-5.1); SODIUM 141 mmol/L (136-145); UREA NITROGEN 22 mg/dL (7-18); eGFR NON AFRICAN AMERICAN 63 mL/min (90-120)
[2019-04-12 12:07] LABS: CKMB 0.9 U/L (0.0-3.6); CREATINE KINASE 57 UL (21-215); TROPONIN-I < 0.017 ng/mL (0.000-0.060)
--- NOTE | 2019-04-12 15:00 | NUR ---
PATIENT ARRIVED TO UNIT VIA WHEELCHAIR AND ADMITTED TO ROOM 2116. PATIENT IS ALERT/ORIENTED. RESP EVEN AND UNLABORED. PATIENT CC IS CHEST PAIN. TELEMETRY APPLIED AT THIS TIME. FAMILY AT BEDSIDE. NO DISTRESS.
[2019-04-12 16:28] VITALS: BP 149/67; Ht 167.6 cm; Wt 87.5 kg
--- NOTE | 2019-04-12 17:27 | NUR ---
PATIENT RESTING IN BED WITH ATTENTION TOWARD PERSON LUMA READER. DENIES NEEDS. ORANGE JUICE PROVIDED UPON REQUEST. NO DISTRESS. CALL LIGHT WITHIN REACH.
[2019-04-12 20:00] VITALS: BP 130/61
--- NOTE | 2019-04-12 21:58 | NUR ---
INITIAL ROUNDS COMPLETED AT 1909 HRS. PT DENIED ANY DISCOMFORT. ASSESSMENT COMPELTED AT 1954 HRS. VSS. SB PER CM HR 56. ALERT AND ORIENTED TO PERSON, PLACE AND TIME. GEIGER. LUNGS ESSENTIALLY CTA. ABD SOFT WITH ACTIVE BS NOTED. IV TO LAC SL. INFORMED ON AUTOMATIC CAR WASH ATTENDANT SCHEDULE AFTER LUNCH SATURDAY. PT STATED UNDERTANDING. PT CURRENTLY RESTING WITH EYES CLOSED ON L SIDE. RESP EVEN AND REGULAR. SR UP X1, CALL LIGHT WITHIN REACH.
[2019-04-13] VITALS: BP 118/48
--- NOTE | 2019-04-13 00:37 | NUR ---
PT RESTING WITH EYES CLOSED. RESP EVEN AND REGULAR. SR UP X2, CALL LIGHT WITHIN REACH.
--- NOTE | 2019-04-13 02:06 | NUR ---
PT AWAKE; DENIES ANY DISCOMFORT. SR UP X2, CALL LIGHT WITHIN REACH.
[2019-04-13 04:00] VITALS: BP 120/51
--- NOTE | 2019-04-13 04:33 | NUR ---
PT RESTING WITH EYES CLOSED. RESP EVEN AND REGULAR. SR UP X2,CALL LIGHT WITHIN REACH.
--- NOTE | 2019-04-13 05:52 | NUR ---
VSS THROUGHOUT NIGHT. SB PER CM. PT DENIED ANY DISCOMFORT. NEEDS MET; WILL CONTINUE TO MONITOR.
[2019-04-13 09:42] VITALS: BP 133/55
--- NOTE | 2019-04-13 19:22 | NUR ---
PATIENT DISCHARGE PAPERWORK SIGNED. PATIENT IV REMOVED. PATIENT GETTING DRESSED.
--- NOTE | 2019-04-14 09:53 | EC ---
PATIENT:SIMA PHILLIP DATE OF SERVICE: 04/12/19 SEX: F MEDICAL RECORD: [id number] DATE OF : 32 LOCATION:D.OPS AGE OF PATIENT: 88 ADMISSION DATE: 04/12/19 REFERRING PHYSICIAN: INTERPRETING PHYSICIAN: JIGAR MON MD ECHOCARDIOGRAM REPORT ECHO CHARGES 4 ECHO COMPLETE Date: 04/13/19 CLINICAL DIAGNOSIS: CP ECHOCARDIOGRAPHIC MEASUREMENTS (adult normal given) AC root (d.<3.7cm) 2.9 cm LV Septum d (<1.2 cm> 0.9 cm Valve Excursion 1.6 cm LV Septum (systole) 1.5 cm Left Atria (s.<4.0cm> 3.3 cm LVPW d(<1.2cm) 0.8 cm RV (d.<2.3cm) 2.7 cm LVPW (sytole) 1.0 cm LV diastole(<5.6CM) 5.1 cm MV E-F(>70mm/sec) cm LV systole 3.5 cm LVOT Diameter 1.9 cm MV exc.(>10mm) cm Est.ejection fraction (50-75%) % DOPPLER: LVIT cm/sec A 77 cm/sec E 65 cm/sec LA cm/sec RVSP 53.4 mmHg LVOT 120 cm/sec AOP1/2T m/s Asc. Ao 152 cm/sec RVOT 85 cm/sec RA cm/sec PA 75 cm/sec AV Gradient Peak 9.2 mmHg AV Mean 4.7 mmHg AV Area 2.1 cm MV Gradient Peak 3.6 mmHg MV Mean 1.6 mmHg MV Area cm COMMENTS: Single Fold Machine Operator: Karon [facility] Grit Blaster: 1 Dr. Mon TAPE# PACS Pericardial Effusion N DATE OF SERVICE: FINDINGS: 1. Left ventricular chamber size is within normal limits. Left ventricular systolic function is normal. Overall ejection fraction is estimated at 55%. 2. Left atrium is within normal limits. Right atrium and right ventricular chamber sizes are mildly dilated. 3. Valvular structures have normal structure and motion. 4. Doppler interrogation reveals mild aortic insufficiency, mild mitral regurgitation, and moderate tricuspid regurgitation. No other valvular ECHOCARDIOGRAM REPORT [id number] SIMA PHILLIP insufficiency or stenosis. Pulmonary systolic pressure is estimated at 53 mmHg. 5. No evidence of pericardial effusion or left ventricular thrombus. TRANSINT:[id number] Voice Confirmation ID: [id number] DOCUMENT ID: [id number] JIGAR MON MD at 0953 CC: [id number] DICTATION DATE: 04/13/19 1507 DATABASE DBA: 04/13/19 1727 DEP CLI 04/13/19 [place] [id number]
--- NOTE | 2019-04-14 09:53 | HP ---
PATIENT: SIMA RAY MEDICAL RECORD: [id number] ACCOUNT: [id number] LOCATION:[facility] : 32 ADMISSION DATE: 04/12/19 PCP: No PCP HISTORY AND PHYSICAL EXAMINATION DIAGNOSES: 1. Unstable angina class IV. 2. Coronary artery disease. 3. Previous PTCA and stent. 4. Hypertension. 5. Hyperlipidemia. HISTORY OF PRESENT ILLNESS: Mrs. Ray has been having one day of severe chest discomfort, just like that of her previous angina. Her last cardiac intervention was in October of 2016 with PTCA and stent of the LAD. She has had multiple episodes at rest today. She is currently pain free. Her EKG is with no ST-T abnormalities. She is currently on metoprolol with heart rates in the 50s. Systolic blood pressure is in the 120-130 range. She is as well on atorvastatin. PHYSICAL EXAMINATION: GENERAL APPEARANCE: Well-nourished, well-developed, appears stated age. Level of distress, comfortable. PSYCHIATRIC: Mental status, alert, normal affect. Orientation, oriented to time, place and person. EYES: Lids and conjunctiva, noninjected. No discharge, no pallor. ENT: Lips, teeth, gums, normal dentition. Oropharynx, no cyanosis, no pallor. NECK: Carotid arteries, bilateral normal upstroke, no bruits, no thrills. JUGULAR VEINS: No jugular venous pressure or distention. CERVICAL LYMPH NODES: Nontender, nonenlarged. THYROID: Not enlarged. Nontender. No nodules. LUNGS: Respiratory effort, unlabored. CHEST: Normal curvature. No thoracic deformity. No chest wall tenderness. Percussion, resonant. Auscultation, clear. No wheezes, no rales, no rhonchi. CARDIOVASCULAR: Precordial exam, nondisplaced. No heaves or pericardial thrills. Rate and rhythm, regular. Heart sounds, normal S1, normal S2. No S3, no gallop, no rub. Systolic murmur, not heard. Diastolic murmur, not heard. EXTREMITIES: No cyanosis, no edema. Peripheral pulses, full and equal in all extremities, except as noted. No bruits appreciated. ABDOMEN: Soft, nondistended. Normal aorta. No bruit. Nontender. No masses. Liver, nontender, no hepatomegaly. Spleen, nontender, no splenomegaly. MUSCULOSKELETAL: No joint tenderness. No joint swelling. No erythema. NEUROLOGICAL: Normal gait, normal strength, normal tone. SKIN: Warm and dry. OVERALL IMPRESSION: Unstable anginal symptomatology. At this time, we will add a long-acting nitrate due to the episodes of rest pain and past history of coronary artery disease, hypertension, hyperlipidemia, and family history of coronary artery disease with having aspirin therapy as well within the past 24 hours and progression of symptomatology. We will proceed with coronary angiography in the a.m., sooner if symptomatology warrants. TRANSINT:[id number] Voice Confirmation ID: [id number] DOCUMENT ID: [id number] HISTORY AND PHYSICAL [id number] SIMA RAY JEFFREY MD at 0953 CC: [id number] DICTATION DATE: 04/12/19 1324 ADMINISTRATIVE RESOURCES ASSOCIATE: 04/12/19 1355 DEP CLI 04/13/19 [place] [id number] [place] [address]
--- NOTE | 2019-04-14 09:53 | OP ---
PATIENT NAME: SIMA PHILLIP MEDICAL RECORD: [id number] :32 LOCATION:[facility] ADMISSION DATE: SURGEON: JIGAR PRIETO MD DATE OF OPERATION: 04/13/2019 PROCEDURES: 1. Left heart catheterization. 2. Selective coronary angiography. 3. Left ventriculogram. INDICATION: Angina, coronary artery disease, previous PTCA stent, hypertension, hyperlipidemia. PROCEDURE: After informed consent was obtained and after a detailed description of risks, benefits as well as alternative therapies, the patient elected to proceed with angiogram and heart catheterization. The right femoral area was prepped and draped in normal sterile fashion. Right femoral artery was cannulated via modified Seldinger technique with placement of 6-Serbian sheath. All catheters exchanged through this sheath. FINDINGS: Left ventriculogram was performed in standard 30-degree SOLIMAN view, reveals good cardiac wall motion, ejection fraction is 60%. SELECTIVE CORONARY ANGIOGRAPHY: 1. Left main is with no significant angiographic disease. 2. Left anterior descending has previously placed stents, these are widely patent with no significant restenosis noted. No disease elsewise throughout the LAD or its branches. 3. Left circumflex has moderate irregularities, but no flow-limiting stenosis. 4. Right coronary has moderate irregularities, but no flow-limiting stenosis. OVERALL IMPRESSION: Wide patency of the previously placed stents, no disease elsewise. Normal ventricular function. Chest pain is noncardiac in etiology. TRANSINT:[id number] Voice Confirmation ID: [id number] DOCUMENT ID: [id number] JIGAR PRIETO MD at 0953 CC: [id number] DICTATION DATE: 04/13/19 1631 WASTEWATER TREATMENT PLANT INSTRUCTOR: 04/13/19 1818 DEP CLI 04/13/19 [facility] [address] [place] [id number]
== END 2019-04-13 19:38 | disposition home or self-care (01) ==
LOC: D.ER 11:18 → D.OPS 11:18 → D.M2 11:18 → EDSTATUS 14:48 → D.OPS 04-13 19:38
PROVIDERS: Emergency Medicine; ATTEND Internal Medicine Interventional Cardiology
DX: I20.9 Angina pectoris, unspecified (principal)